=== PATIENT | female | born 1990 | race Caucasian/White ===

== ENCOUNTER 2020-01-19 18:50 | Emergency (ER) | payer OTHER, SELFPAY ==
[2020-01-19 18:52] VITALS: BP 139/83; PULSE 81; RESP 18; TEMP 36.7; O2SAT 100; BMI 26.9
[2020-01-19 18:56] VITALS: BP 139/83; PULSE 72; PULSE 80; RESP 17; RESP 18; TEMP 36.7; O2SAT 100
--- NOTE | 2020-01-19 19:29 | EKG12_ITS ---
Test Reason : DYSRHYTHMIA Blood Pressure : / mmHG Vent. Rate : 066 BPM Atrial Rate : 066 BPM P-R Int : 142 ms QRS Dur : 086 ms QT Int : 380 ms P-R-T Axes : -10 041 025 degrees QTc Int : 398 ms Normal sinus rhythm with sinus arrhythmia Normal ECG Confirmed by DAXA LOCKE, NAZANIN ([id number]), copy editor RAEANN CODY ([id number]) on 01/22/2020 9:50:03 AM Referred By: STEPHANI Confirmed By:NAZANIN MITTAL MD
--- NOTE | 2020-01-19 19:34 | ED.VIS.DYS ---
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 9 or 10 days ago, she started having headaches, then sinus congestion, then cough, low-grade fevers, myalgias, loss of taste and smell. Out of concern for COVID-19, she was [place] [facility] [place] [employer] with a rapid test that she states they called her with results around 16 hours later, it was negative. Most of her symptoms have gradually improved or resolved, today she started having pain in both sides of her chest and both sides of her upper back, it is pleuritic, and she was very short of breath earlier although all of the symptoms are improved now, but still present. She denies any palpitations, near syncope, leg swelling with any of this. Past Medical History - Allergies and Home Meds Allergies/Adverse Reactions: Allergies cephalexin [From Keflex] Allergy (Verified 01/19/20 18:52) Hives clindamycin Allergy (Verified 01/19/20 18:52) IT GAVE ME ZORAIDA-MARCIE SYNDROME sulfamethoxazole [From Bactrim] Allergy (Verified 01/19/20 18:52) Hives trimethoprim [From Bactrim] Allergy (Verified 01/19/20 18:52) Hives Primary Care Physician: Care Physician,No Primary [Primary Care Provider] - Past Medical History: None Lives: Spouse/ Significant Other Review of Systems General: Reports: Fever, Malaise. Denies: Sweats Eyes: Denies: Visual changes - bilaterally, Diplopia ENT: Reports: Rhinorrhea. Denies: Bilateral ear pain, Sore throat Cardiovascular: Reports: Chest pain. Denies: Palpitations, Heart racing Respiratory: Reports: Dyspnea, Cough. Denies: Sputum, Dyspnea on exertion Gastrointestinal: Denies: Abdominal pain, Nausea, Vomiting, Diarrhea, Melena, Hematochezia Genitourinary: Denies: Dysuria, Hematuria, Frequency Musculoskeletal: Reports: Myalgias, Back pain. Denies: Extremity Pain Skin: Denies: Rash, Wounds Neurological: Reports: Headache. Denies: Weakness, Numbness Physical Exam Vital Signs/Narrative: Vital Signs Temp Pulse Resp BP Pulse Ox 01/19/20 18:56 98.1 F 80 17 139/83 H 100 01/19/20 18:52 98.1 F 81 18 139/83 H 100 Inital Vital Signs reviewed: Yes General: Well nourished, Well developed, No Acute Distress - Well-appearing, no distress, conversive in full sentences Head: Normocephalic, Atraumatic Eyes: Perrl, EOMI ENT: No rhinorrhea. Negative for: Sinus tenderness Neck: Supple, Nontender, No lymphadenopathy, No JVD Cardiovascular: Regular rate, Regular rhythm, No murmurs. Negative for: Tachycardia Respiratory: No distress, CTA bilaterally, Chest tenderness - Mild throughout anterior chest Abdomen: Soft, Nontender, Nondistended, Normal bowel sounds Back: Nontender, Normal Inspection Extremities: Nontender, No edema. Negative for: Calf Tenderness Skin: Normal color, No rash, No Trauma Neurological: Alert, Oriented x3, Cranial nerves II-XII grossly intact, Normal Strength, Normal Sensation, Normal Gait Psychological: Normal affect, Normal Mood Diagnostic/Tx/Re-eval Chest X-Ray - ED: 1 View, Read by ED Physician, Normal, Heart, Lungs, Mediastinum, Bony Structures, No Acute Disease Laboratory Tests 01/19/20 01/19/20 01/19/20 Range/Units 19:50 19:50 19:50 WBC 4.6 (4.4-11.0) K/mm3 RBC 4.59 (4.2-5.4) M/mm3 Hgb 13.7 (12.0-15.0) g/dL Hct 41.2 (37-47) % MCV 89.8 (81-99) fL MCH 29.8 (27.0-32.0) pg MCHC 33.3 (32-36) g/dL RDW Std Deviation 40.6 (35.1-43.9) fl RDW Coeff of Vanessa 12.4 (11.6-14.6) % Plt Count 174 (150-450) K/mm3 MPV 9.9 (6.2-12.0) fl Immature Gran % (Auto) 0.200 (0.0-0.9) % Neut % (Auto) 52.3 (47-70) % Lymph % (Auto) 36.5 (19-41) % [place] % (Auto) 9.5 (0-10) % Eos % (Auto) 1.1 (0-5) % Baso % (Auto) 0.4 (0-1) % Absolute Neuts (auto) 2.4 (2.0-7.7) X10^3/uL Absolute Lymphs (auto) 1.69 (0.83-4.51) X10^3/uL Nucleated RBC % 0 (0-5) % D-Dimer Quant (PE/DVT) 0.29 (0.27-0.49) FEU/ug/m Sodium 141 (136-145) mmol/L Potassium 3.5 (3.5-5.1) mmol/L Chloride 110 H (98-107) mmol/L Carbon Dioxide 27.0 (21.0-32.0) mmol/L Anion Gap 4 L (5-15) BUN 13 (7-18) mg/dL Creatinine 0.70 (0.55-1.02) mg/dL Estim Creat Clear Calc 94.63 ml/min Est GFR (MDRD) Af Amer 128 (>60) mL/min Est GFR (MDRD) Non-Af 105 (>60) mL/min BUN/Creatinine Ratio 18.5 (10-20) RATIO Glucose 116 H (74-106) mg/dL Calcium 8.9 (8.5-10.1) mg/dL Troponin I < 0.015 (<0.045) ng/mL - Rhythm Strip Rhythm Strip: Sinus Rhythm Rate: 80 Ectopy: None - EKG Initial EKG Interpretation: Sinus Rhythm, No Acute Injury Pattern - Normal EKG - Medical Decision Making On my interpretation, patient's 1 view chest x-ray is normal-appearing. Her D-dimer returned negative, reassuring that she does not have a pulmonary embolus explaining these acute symptoms today. Furthermore, her chest is tender to palpation, reproducing her symptoms. It is possible this was all chest wall in etiology. I am concerned about her symptoms and her negative coronavirus test, that could have been incorrect. I am sending off a repeat, but her vital signs are normal and she is well and does not need to be admitted. I will be a send out. She understands a quarantine until the results are back. She is comfortable being discharged home and managing with anti-inflammatories. ED Disposition - Plan for ED Patient: Disposition: Home or Assisted Living Diagnosis: Chest wall pain, Dyspnea, Suspected COVID-19 virus infection Instructions: ED Chest Pain NonCardiac Referrals: Doctor,Your [STAFF PHYSICIAN] - 1 Week if not improving Additional Instructions: Tylenol, anti-inflammatories as needed for pain. Quarantine yourself until your coronavirus test comes back negative. See attached instructions on how to look up the results.
[2020-01-19 19:44] VITALS: O2SAT 99
[2020-01-19 19:49] VITALS: O2SAT 99
--- NOTE | 2020-01-19 19:58 | RAD_ITS ---
STUDY: X-RAY CHEST REASON FOR EXAM: Female, 29 years old. Cough, shortness of breath, chest discomfort with inspiration. TECHNIQUE: Frontal view of the chest COMPARISON: None. FINDINGS: The lungs are clear and expanded. There is no demonstrated pleural abnormality. Normal size heart. Normal mediastinum and cici. Normal visualized pulmonary arteries. Normal visualized aortic arch and descending thoracic aorta. Normal visualized thoracic spine. Normal visualized ribs, clavicles, and shoulders. There is no demonstrated abnormality of the visualized soft tissue structures of the upper abdomen. RAD/Chest 1 View (Portable) IMPRESSION: Normal x-ray examination of the chest. Electronically Signed: Steven Nieves, at 20:37 EST Tel , Service support ,
[2020-01-19 20:00] LABS: Absolute Lymphocyte Count 1.69 X10^3/uL (0.83-4.51); Absolute Neutrophil Count 2.4 X10^3/uL (2.0-7.7); Basophil# 0.02 X10^3/uL; Basophil% 0.4 % (0-1); Eosinophil# 0.05 X10^3/uL; Eosinophils% 1.1 % (0-5); Hematocrit 41.2 % (37-47); Hemoglobin 13.7 g/dL (12.0-15.0); Lymphocyte # 1.69 X10^3/ul (4.0); Lymphocyte % 36.5 % (19-41); Mean Corp Hgb Conc 33.3 g/dL (32-36); Mean Corpuscular Hgb 29.8 pg (27.0-32.0); Mean Corpuscular Volume 89.8 fL (81-99); Mean Platelet Vol. 9.9 fl (6.2-12.0); Monocyte# 0.44 X10^3/uL; Monocyte% 9.5 % (0-10); NRBC Flagged by Analyzer 0 % (0-5); Neutrophil # 2.42 X10^3/uL (2.7-7.7); Neutrophil % 52.3 % (47-70); Platelet Count 174 K/mm3 (150-450); RBC Distribution Width CV 12.4 % (11.6-14.6); RBC Distribution Width SD 40.6 fl (35.1-43.9); Red Blood Count 4.59 M/mm3 (4.2-5.4); White Blood Count 4.6 K/mm3 (4.4-11.0)
[2020-01-19] MEDS: 0.9% Normal Saline 1,000 ML 150 ML IV (20:05)
[2020-01-19 20:12] LABS: D-Dimer Quantitative (DVT/PE) 0.29 FEU/ug/m (0.27-0.49)
[2020-01-19 20:20] LABS: Anion Gap 4 (5-15); BUN 13 mg/dL (7-18); BUN/Creat Ratio 18.5 RATIO (10-20); Calcium,Total 8.9 mg/dL (8.5-10.1); Chloride 110 mmol/L (98-107); EST Glomerular Filtration Rate 105 mL/min (>60); Est Glom Filt Rate - Afr Amer 128 mL/min (>60); Estimated Creatinine Clearance 94.63 ml/min; Glucose 116 mg/dL (74-106); Potassium 3.5 mmol/L (3.5-5.1); Sodium Level 141 mmol/L (136-145)
[2020-01-19 20:46] VITALS: BP 111/64; PULSE 78; RESP 18; O2SAT 99
== END 2020-01-19 20:48 | disposition home or self-care (01) ==
PROVIDERS: Emergency Provider Emergency Medicine
DX: R07.89 Other chest pain (principal); R06.00 Dyspnea, unspecified; J34.89 Other specified disorders of nose and nasal sinuses; R05 Cough; M79.10 Myalgia, unspecified site; R51.9 Headache, unspecified; Z20.828 Contact with and (suspected) exposure to other viral communicable diseases
CPT/HCPCS: 71045; 80048; 84484; 85025; 85379; 93005; 96360; 99285; J7030; A4216